=== PATIENT | female | born 1930 | race Caucasian/White ===

== ENCOUNTER 2017-02-07 21:22 | Inpatient (IN) | payer OTHER ==
--- NOTE | 2017-02-07 21:46 | CPEKG ---
Heart Rate: 75 RR Interval: 800 P-R Interval: 216 QRSD Interval: 86 QT Interval: 436 QTC Interval: 487 P Round Top: 41 QRS Round Top: -15 T Wave Round Top: 29 EKG Severity - BORDERLINE ECG - EKG Impression: SINUS RHYTHM EKG Impression: PROBABLE LEFT ATRIAL ABNORMALITY EKG Impression: BORDERLINE LEFT AXIS DEVIATION EKG Impression: BORDERLINE PROLONGED QT INTERVAL Electronically Signed By: Kamille Urbina 09-Feb-2017 06:47:22
[2017-02-07 22:02] LABS: % IMMATURE GRANULYOCYTES 0.5 % (0.0-1.1); ABSOLUTE IMMATURE GRANULOCYTES 0.07 10^3/uL (0.00-0.10); ADD DIFF? NO; ADD MORPH? NO; ADD SCAN? NO; ATYPICAL LYMPHOCYTE FLAG 0 (0-99); FRAGMENT RBC FLAG 10 (0-99); HEMATOCRIT 40.1 % (38.0-47.0); HEMOGLOBIN 14.1 g/dL (12.6-16.3); LEFT SHIFT FLG 0 (0-99); LIPEMIA HEMOLYSIS FLAG 90 (0-99); MEAN CELL HEMOGLOBIN 30.8 pg (27.9-34.1); MEAN CELL HEMOGLOBIN CONCENTR. 35.2 g/dL (32.4-36.7); MEAN CELL VOLUME 87.6 fL (81.5-99.8); MEAN PLATELET VOLUME 9.7 fL (8.7-11.7); PLATELET CLUMPS FLAG 10 (0-99); PLATELET COUNT 317 10^3/uL (150-400); RED BLOOD CELL COUNT 4.58 10^6/uL (4.18-5.33); RED CELL DISTRIBUTION WIDTH 12.7 % (11.5-15.2)
[2017-02-07] MEDS ORDERED: NS 500 ML IV ONE (22:03)
--- NOTE | 2017-02-07 22:07 | EDPHY ---
HPI/HX/ROS/PE/MDM Narrative: CHIEF COMPLAINT: Nausea and vomiting HPI: The patient is an 86-year-old female with no significant past medical history. On Monday she was diagnosed with UTI based on cloudy urine and started on Bactrim which she has been taking. This evening, she developed relatively rapid onset of nausea and vomiting. She denies abdominal pain. She denies chest pain or shortness of breath. She denies fever or dysuria. REVIEW OF SYSTEMS: Aside from elements discussed in the HPI, a comprehensive 10-point review of systems was reviewed and is negative. PMH: No history of bowel surgery. No history of cardiac disease. SOCIAL HISTORY: Retired speech therapist. Denies alcohol or drug abuse. PHYSICAL EXAM: General:Patient is alert, in no acute distress. ENT:Eyes are normal to inspection. ENT inspection normal. Neck: Normal inspection. Full range of motion. Respiratory:No respiratory distress. Breath sounds normal bilaterally. Cardiovascular: Regular rate and rhythm. Strong peripheral pulses. Normal cap refill. Abdomen:The abdomen is nontender to palpation. There are no peritoneal signs. There are normal bowel sounds. Back: Normal to inspection. No tenderness to palpation. Skin: Normal color. No rash. Warm and dry. Extremities: Normal appearance. Full range of motion. Neuro: Oriented x3. Normal motor function. Normal sensory function. (Ayaan Schmidt) ED Course: 12:30 a.m.- I received sign-out on this patient at approximately 11:[address] Schmidt. Her vital signs have remained stable. She has not had any ongoing vomiting here. Remainder of labs reveal a leukocytosis with signs of urinary tract infection with positive leukocyte esterase and white blood cells. I reviewed the patient's urine culture from several days ago which did reveal Corynebacterium, which could very well be contaminant. She has been compliant with Bactrim for 3 days now. Given her hyponatremia, vomiting, signs of urinary tract infection on today's UA, I have recommended admission for her and she agrees. I have ordered a dose of ceftriaxone. She does have cephalexin listed as an allergy, however she says this is to latex gloves and she denies any true cephalosporin allergy. I have discussed the case with the hospitalist Dr. Guillen and we will admit the patient (Kamille Urbina) 10:20 - I informed patient of her low sodium on lab tests and recommended admission. The patient states however that she does not want to be admitted because Medicare will not pay for an observation admit. (Ayaan Schmidt) - Data Points Imaging Results: Imaging Impressions Abdomen X-Ray 02/07/17 22:02 Impression: 1. Nonspecific bowel gas pattern. 2. Smoothly contoured density in the right lower quadrant, likely representing the inferior liver edge. A similar density is seen on program director cable television radiograph from CT dated 04/03/2010. Laboratory Results: Laboratory Results 02/07/17 21:10 02/07/17 21:10 02/07/17 02/07/17 02/07/17 23:17 21:10 21:10 WBC 12.91 10^3/uL H 10^3/uL (3.80-9.50) RBC 4.58 10^6/uL 10^6/uL (4.18-5.33) Hgb 14.1 g/dL g/dL (12.6-16.3) Hct 40.1 % % (38.0-47.0) MCV 87.6 fL fL (81.5-99.8) MCH 30.8 pg pg (27.9-34.1) MCHC 35.2 g/dL g/dL (32.4-36.7) RDW 12.7 % % (11.5-15.2) Plt Count 317 10^3/uL 10^3/uL (150-400) MPV 9.7 fL fL (8.7-11.7) Neut % (Auto) 78.2 % H % (39.3-74.2) Lymph % (Auto) 15.3 % % (15.0-45.0) [place] % (Auto) 5.3 % % (4.5-13.0) Eos % (Auto) 0.2 % L % (0.6-7.6) Baso % (Auto) 0.5 % % (0.3-1.7) Nucleat RBC Rel Count 0.0 % % (0.0-0.2) Absolute Neuts (auto) 10.09 10^3/uL H 10^3/uL (1.70-6.50) Absolute Lymphs (auto) 1.98 10^3/uL 10^3/uL (1.00-3.00) Absolute Monos (auto) 0.68 10^3/uL 10^3/uL (0.30-0.80) Absolute Eos (auto) 0.02 10^3/uL L 10^3/uL (0.03-0.40) Absolute Basos (auto) 0.07 10^3/uL 10^3/uL (0.02-0.10) Absolute Nucleated RBC 0.00 10^3/uL 10^3/uL (0-0.01) Immature Gran % 0.5 % % (0.0-1.1) Immature Gran # 0.07 10^3/uL 10^3/uL (0.00-0.10) Sodium 124 mEq/L L mEq/L (134-144) Potassium 4.0 mEq/L mEq/L (3.5-5.2) Chloride 92 mEq/L L mEq/L (97-110) Carbon Dioxide 18 mEq/l L mEq/l (22-31) Anion Gap 14 mEq/L mEq/L (8-16) BUN 11 mg/dL mg/dL (7-23) Creatinine 0.7 mg/dL mg/dL (0.6-1.0) Estimated GFR > 60 Glucose 132 mg/dL H mg/dL (70-100) Calcium 9.6 mg/dL mg/dL (8.5-10.4) Total Bilirubin 0.8 mg/dL mg/dL (0.1-1.4) AST 27 IU/L IU/L (14-46) ALT 32 IU/L IU/L (9-52) Alkaline Phosphatase 105 IU/L IU/L (38-126) Troponin I < 0.012 ng/mL ng/mL (0.000-0.034) Total Protein 7.1 g/dL g/dL (6.3-8.2) Albumin 4.3 g/dL g/dL (3.5-5.0) Lipase 112 IU/L IU/L (23-300) Urine Color YELLOW Urine Appearance MODERATELY TURBID Urine pH 6.0 (5.0-7.5) Ur Specific [place] 1.009 (1.002-1.030) Urine Protein NEGATIVE (NEGATIVE) Urine Ketones TRACE H (NEGATIVE) Urine Blood NEGATIVE (NEGATIVE) Urine Nitrate NEGATIVE (NEGATIVE) Urine Bilirubin NEGATIVE (NEGATIVE) Urine Urobilinogen NEGATIVE EU EU (0.2-1.0) Ur Leukocyte Esterase 3+ H (NEGATIVE) Urine RBC 25-50 /hpf H /hpf (0-3) Urine WBC 50-182 /hpf H /hpf (0-3) Ur Epithelial Cells Not Reported Urine Bacteria 1+ /hpf H /hpf (NONE SEEN) Urine Glucose NEGATIVE (NEGATIVE) Medications Given: Discontinued Medications Sodium Chloride (Ns) 500 mls @ 0 mls/hr IV EDNOW ONE; Wide Open PRN Reason: Protocol Stop: 02/07/17 22:04 Last Admin: 02/07/17 22:17 Dose: 500 mls General Time Seen by Provider: 02/07/17 21:42 Initial Vital Signs: Initial Vital Signs Temperature (C) 36.8 C 02/07/17 21:22 Heart Rate 76 02/07/17 21:22 Respiratory Rate 18 02/07/17 21:22 Blood Pressure 139/82 H 02/07/17 21:22 O2 Sat (%) 96 02/07/17 21:22 O2 Delivery Mode Room Air O2 (L/minute) 2 Allergies/Adverse Reactions: cephalexin monohydrate [From [employer]] Allergy (Verified 02/24/10 00:00) latex Allergy (Verified 02/08/17 10:11) Home Medications: Medication Instructions Recorded Escitalopram Oxalate [Lexapro] 10 mg PO DAILY 02/07/17 Herbals/Supplements -Info Only 1 ea PO DAILY 02/07/17 Sulfamethox/Tmp 800/160 mg 1 tab PO BID 02/07/17 [Bactrim Ds] amLODIPine BESYLATE [Norvasc 2.5 2.5 mg PO DAILY 02/07/17 mg (*)] Ascorbic Acid [Vitamin C 500 mg 500 mg PO DAILY 02/08/17 (*)] Cholecalciferol Vit D3 [Vitamin D3 1,000 units PO DAILY 02/08/17 (*)] Herbals/Supplements -Info Only 1 ea PO DAILY 02/08/17 Multivitamins [Multivitamin (*)] 1 each PO DAILY 02/08/17 Valet Manager Thyroid 60mg 1 each PO MWF 02/08/17 Valet Manager Thyroid 90mg 90 mg PO SUTUTHSA 02/08/17 Departure - Departure Disposition: [facility] Acute Clinical Impression: Hyponatremia Vomiting Qualifiers: Vomiting type: unspecified Vomiting Intractability: non-intractable Nausea presence: with nausea Qualified Code(s): R11.2 - Nausea with vomiting, unspecified UTI (urinary tract infection) Qualifiers: Urinary tract infection type: site unspecified Hematuria presence: without hematuria Qualified Code(s): N39.0 - Urinary tract infection, site not specified
[2017-02-07 22:13] LABS: ALANINE AMINOTRANSFERASE 32 IU/L (9-52); ALBUMIN 4.3 g/dL (3.5-5.0); ALKALINE PHOSPHATASE 105 IU/L (38-126); ANION GAP 14 mEq/L (8-16); ASPARTATE AMINOTRANSFERASE 27 IU/L (14-46); BILIRUBIN,TOTAL 0.8 mg/dL (0.1-1.4); CALCIUM 9.6 mg/dL (8.5-10.4); CARBON DIOXIDE 18 mEq/l (22-31); CHLORIDE 92 mEq/L (97-110); CREATININE 0.7 mg/dL (0.6-1.0); GLOMERULAR FILTRATION RATE > 60; GLUCOSE 132 mg/dL (70-100); SODIUM 124 mEq/L (134-144); TOTAL PROTEIN 7.1 g/dL (6.3-8.2)
[2017-02-07 22:31] LABS: TROPONIN I < 0.012 ng/mL (0.000-0.034)
[2017-02-07 23:30] LABS: COLOR YELLOW; LEUKOCYTE ESTERASE,URINE 3+ (NEGATIVE); NITRITE,URINE NEGATIVE (NEGATIVE)
[2017-02-07 23:35] LABS: BACTERIA 1+ /hpf (NONE SEEN); RBC,URINE 25-50 /hpf (0-3); WBC,URINE 50-182 /hpf (0-3)
[2017-02-08] MEDS ORDERED: ONDANSETRON DISINTEGRATING 4 MG TAB PO PRN (00:39)
[2017-02-08] MEDS ORDERED: NS 1,000 ML IV ONE (00:39)
[2017-02-08] MEDS ORDERED: ACETAMINOPHEN 325 MG TAB PO PRN (00:39)
[2017-02-08] MEDS ORDERED: ONDANSETRON 4 MG/2 ML VIAL IVP PRN (00:39)
--- NOTE | 2017-02-08 02:27 | GHP ---
[f rep st] HISTORY AND PHYSICAL DATE OF ADMISSION: 02/08/2017 CHIEF COMPLAINT: Nausea and vomiting. HISTORY OF PRESENT ILLNESS: This is an 86-year-old female with limited past medical history, who pre sented to her outpatient provider with dysuria approximately 72 hours ago, was started on oral Bactri m. Patient had continued symptoms on the oral Bactrim and then had progression today to lethargy, we akness, nausea and vomiting. After being unable to hold down adequate p.o., patient presented to the emergency department for evaluation. In the ED, endorses some subjective fevers. Denies chest pain , shortness of breath. Denies palpitations. Endorses some abdominal discomfort. Severe nausea and vomiting, which has been relieved with IV antiemetics. Endorses dysuria as well as hematuria. Denie s any myalgias, arthralgias or rashes. The patient typically is able to complete all her ADLs withou t limitation and takes regular food and drink without complication. PAST MEDICAL HISTORY: 1. Hypertension. 2. Hypothyroidism. 3. Chronic dry eyes. 4. Hearing loss. SOCIAL HISTORY: Lives independently in a facility and has lived with this facility support for appro ximately 23 years. Denies tobacco, alcohol or illicit drugs. FAMILY HISTORY: Positive for CVAs in her father. ADVANCED DIRECTIVES: The patient is do not resuscitate. Her daughter would be her medical decision maker. REVIEW OF SYSTEMS: The 10-point review of systems is negative with the exception of that reported in the HPI. PHYSICAL EXAMINATION: VITAL SIGNS: Blood pressure 132/82, heart rate 76, respiratory rate 18, 96% o n room air, 36.8. GENERAL: This is a very healthy-appearing elderly female, sitting in bed. HEENT: Notable for dry mucous membranes. Eye exam is negative for any icterus. CARDIAC: Patient is regu lar rate and rhythm. A quiet systolic murmur is appreciated. PULMONARY: Good respiratory effort. Clear to auscultation bilaterally. GASTROINTESTINAL: Positive bowel sounds. ABDOMEN: Soft, mildly tender to suprapubic pressure no rebound or guarding. MUSCULOSKELETAL: Negative for any lower extr emity edema. SKIN: Negative for any rashes. NEUROLOGIC: She is alert and oriented x3. PSYCHIATRI C: She is pleasant and cooperative on interview and examination. LABORATORY DATA: White count is 12.9, hematocrit 40.1, platelets of 317. Creatinine 0.7, sodium 124 . Urinalysis shows 50-182 white cells, with trace ketones, 3+ leukocyte esterase, and red cells. X-ray of the abdomen, which I personally reviewed and interpreted, shows no findings consistent with small bowel obstruction. ASSESSMENT AND PLAN: This is an 86-year-old female, presenting with nausea and vomiting. 1. Acute pyelonephritis. Patient has systemic symptoms, elevated white count and abnormal urinalysi s. The patient has been started on ceftriaxone in the emergency department. Urine culture has been sent. Will continue with empiric ceftriaxone until culture results available. 2. Hyponatremia. Suspect secondary to hypovolemia. Will resuscitate with normal saline and recheck in the morning. 3. Hypertension. Patient can resume her home medications in the morning after reconciliation. 4. Hypothyroidism. Will continue her thyroid replacement therapy in the morning after reconciliatio n. 5. Diet. Regular. 6. Prophylaxis. Lovenox. DISPOSITION: I expect in less than 2 midnights, as the patient is quite well baseline without signif icant vital sign abnormalities. I believe she will likely turn around in the next 24 hours with impr jenni white count and sodium levels. Safe for disposition home. I have discussed the case with the e mergency room physician. Patient will be triaged to the medical-surgical floor for care. /[id number]/MODL
[2017-02-08 05:25] LABS: % IMMATURE GRANULYOCYTES 0.5 % (0.0-1.1); ABSOLUTE IMMATURE GRANULOCYTES 0.05 10^3/uL (0.00-0.10); ADD DIFF? NO; ADD MORPH? NO; ADD SCAN? NO; ATYPICAL LYMPHOCYTE FLAG 10 (0-99); FRAGMENT RBC FLAG 10 (0-99); HEMATOCRIT 38.5 % (38.0-47.0); HEMOGLOBIN 13.2 g/dL (12.6-16.3); LEFT SHIFT FLG 0 (0-99); LIPEMIA HEMOLYSIS FLAG 90 (0-99); MEAN CELL HEMOGLOBIN 30.6 pg (27.9-34.1); MEAN CELL HEMOGLOBIN CONCENTR. 34.3 g/dL (32.4-36.7); MEAN CELL VOLUME 89.3 fL (81.5-99.8); MEAN PLATELET VOLUME 9.3 fL (8.7-11.7); PLATELET CLUMPS FLAG 10 (0-99); PLATELET COUNT 281 10^3/uL (150-400); RED BLOOD CELL COUNT 4.31 10^6/uL (4.18-5.33); RED CELL DISTRIBUTION WIDTH 12.7 % (11.5-15.2)
[2017-02-08 05:53] LABS: ANION GAP 8 mEq/L (8-16); CALCIUM 9.2 mg/dL (8.5-10.4); CARBON DIOXIDE 20 mEq/l (22-31); CHLORIDE 106 mEq/L (97-110); CREATININE 0.6 mg/dL (0.6-1.0); GLOMERULAR FILTRATION RATE > 60; GLUCOSE 99 mg/dL (70-100); POTASSIUM 4.1 mEq/L (3.5-5.2); SODIUM 134 mEq/L (134-144)
[2017-02-08] MEDS: ENOXAPARIN 40 MG/0.4 ML SYR SC SCH (08:42)
[2017-02-08] MEDS: ESCITALOPRAM OXALATE 10 MG TAB PO SCH (13:02)
[2017-02-08] MEDS: CHOLECALCIFEROL VIT D3 1,000 UNITS TAB PO SCH (13:02)
--- NOTE | 2017-02-08 16:26 | ASMTCMCOM ---
CM Note CM Note Notes: Pt admitted obs status for UTI, vomiting, hyponatremia. She lives at [facility]. Per pt's RN, pt concerned about her obs status and her hospital stay not being paid for. CM spoke with pt re her concerns and provided a Medicare info sheet explaining obs vs inpt stay. Pt also has secondary insurance. Pt appreciative of info. CM also to contact pt's daughter Katie [phone] with this info. PT/OT have cleared pt. Anticipate d/c home with no CM needs. Date Signed: 02/08/2017 04:25 PM Electronically Signed By:MIKE Bustamante
[2017-02-08] MEDS: NP THYROID 60 MG PO SCH (16:38)
[2017-02-08] MEDS: NP THYROID 90 MG PO SCH (16:38)
--- NOTE | 2017-02-08 17:41 | HOSPPROG ---
Hospitalist Progress Note Assessment/Plan: DIAGNOSES: -acute complicated urinary tract infection pending cultures -weakness and gait instability with unsafe ambulation -hypovolemic hyponatremia, notably improved today, likely caused by poor intake from her acute illness as above PLANS: Continue current empiric antibiotics Continue hydration Physical occupational therapy DVT prophylaxis Due to gait instability she will be unsafe home so will need to stay here tonight again and will change to inpatient for that reason SUBJECTIVE: Still feels quite widely on her feet Nausea and vomiting have stopped and she has actually been able to start OBJECTIVE Vitals reviewed: Afebrile otherwise stable Exam: alert oriented skin warm dry color ok resps not labored lungs clear BSs heart regular abd soft nondistended nontender, bowel sounds present limbs warm, no edema iv site ok Laboratory data: Sodium markedly improved today Urine culture pending Objective: Vital Signs Temp Pulse Resp BP Pulse Ox 37.1 C 88 18 118/67 94 02/08/17 16:23 02/08/17 16:23 02/08/17 16:23 02/08/17 16:23 02/08/17 16:23 Laboratory Results 02/08/17 04:45 02/08/17 04:45 02/07/17 02/08/17 02/09/17 06:59 06:59 06:59 Intake Total 1488 1500 Balance 1488 1500 ICD10 Worksheet Patient Problems: Problems Problem Status Onset Hyponatremia Acute UTI (urinary tract infection) Acute Vomiting Acute
[2017-02-09] MEDS: NP THYROID 90 MG PO SCH (09:18)
[2017-02-09] MEDS: ESCITALOPRAM OXALATE 10 MG TAB PO SCH (09:19)
[2017-02-09] MEDS: MULTIVITAMINS 1 EACH TAB PO SCH (09:19)
[2017-02-09] MEDS: ASCORBIC ACID 500 MG TAB PO SCH (09:20)
[2017-02-09] MEDS: ENOXAPARIN 40 MG/0.4 ML SYR SC SCH (09:20)
[2017-02-09] MEDS: CHOLECALCIFEROL VIT D3 1,000 UNITS TAB PO SCH (09:20)
--- NOTE | 2017-02-09 09:22 | HOSPPROG ---
Hospitalist Progress Note Assessment/Plan: DIAGNOSES: -acute complicated urinary tract infection with corynebacterium growing from prior clinic culture -weakness and gait instability with unsafe ambulation, seems better at moment -hypovolemic hyponatremia, notably improved, likely caused by poor intake from her acute illness as above -new onset today acute diarrheal, diff dx includes abx side effect or C diff infection PLANS: Continue current antibiotics, but possible change due to stool issues Continue hydration Physical occupational therapy DVT prophylaxis stool sent to lab for C diff check will need to assess that and her overall safety w mobility to determine if going home makes sense SUBJECTIVE: feels no fever sxs and stronger on feet however 5 diarrheal stools in past 2 hours, no abd pain, has not tried breakfast yet OBJECTIVE Vitals reviewed: Afebrile otherwise stable Exam: alert oriented skin warm dry color ok resps not labored lungs clear BSs heart regular abd soft nondistended nontender, bowel sounds present limbs warm, no edema iv site ok Laboratory data: Urine culture from clinic w Corynebacterium Objective: Vital Signs Temp Pulse Resp BP Pulse Ox 36.6 C 66 14 145/83 H 94 02/09/17 08:12 02/09/17 08:12 02/09/17 08:12 02/09/17 08:12 02/09/17 08:12 ICD10 Worksheet Patient Problems: Problems Problem Status Onset Hyponatremia Acute UTI (urinary tract infection) Acute Vomiting Acute
[2017-02-09] MEDS: DIPHENOXYLATE/ATROPINE LOMOTIL 1 TAB PO PRN (14:51)
[2017-02-10] MEDS: DIPHENOXYLATE/ATROPINE LOMOTIL 1 TAB PO PRN ×2 (01:35→08:48)
[2017-02-10] MEDS: NP THYROID 60 MG PO SCH (08:42)
--- NOTE | 2017-02-10 09:29 | HOSPPROG ---
Hospitalist Progress Note Assessment/Plan: DIAGNOSES: -acute complicated urinary tract infection with corynebacterium growing from prior clinic culture -weakness and gait instability with unsafe ambulation, worse now likely due to fluid and electrolyte loss -diarrhea, c diff neg, but likely and abx side effect -hypovolemic hyponatremia, initially improved but suspect now worse with her diarrhea PLANS: Due to Corynebacterium and to the diarrhea that has developed will change to doxycycline Continue hydration Physical occupational therapy DVT prophylaxis will need to improve her overall safety w mobility before going home makes sense I have reviewed all of above with patient and with her daughter SUBJECTIVE: feels no fever sxs still having a lot of diarrhea, and is feeling weaker with ambulation OBJECTIVE Vitals reviewed: Afebrile otherwise stable Exam: alert oriented skin warm dry color ok resps not labored lungs clear BSs heart regular abd soft nondistended nontender, bowel sounds present limbs warm, no edema iv site ok Laboratory data: Urine culture from clinic w Corynebacterium Objective: Vital Signs Temp Pulse Resp BP Pulse Ox 36.9 C 70 18 120/79 94 02/10/17 08:29 02/10/17 08:29 02/10/17 08:29 02/10/17 08:29 02/10/17 08:29 02/09/17 02/10/17 02/11/17 06:59 06:59 06:59 Intake Total 1999 Balance 2000 ICD10 Worksheet Patient Problems: Problems Problem Status Onset Hyponatremia Acute UTI (urinary tract infection) Acute Vomiting Acute
[2017-02-10] MEDS: ESCITALOPRAM OXALATE 10 MG TAB PO SCH (09:45)
[2017-02-10] MEDS: ASCORBIC ACID 500 MG TAB PO SCH (09:45)
[2017-02-10] MEDS: MULTIVITAMINS 1 EACH TAB PO SCH (09:45)
[2017-02-10] MEDS: NS 1,000 ML IV SCH ×3 (09:45→21:15)
[2017-02-10] MEDS: CHOLECALCIFEROL VIT D3 1,000 UNITS TAB PO SCH (09:45)
[2017-02-10] MEDS: ENOXAPARIN 40 MG/0.4 ML SYR SC SCH (09:46)
[2017-02-10] MEDS: DOXYCYCLINE HYCLATE 100 MG CAP/TAB PO SCH ×2 (09:54→21:15)
[2017-02-10 10:21] LABS: ANION GAP 10 mEq/L (8-16); CALCIUM 9.6 mg/dL (8.5-10.4); CARBON DIOXIDE 23 mEq/l (22-31); CHLORIDE 101 mEq/L (97-110); CREATININE 0.6 mg/dL (0.6-1.0); GLOMERULAR FILTRATION RATE > 60; GLUCOSE 87 mg/dL (70-100); POTASSIUM 4.1 mEq/L (3.5-5.2); SODIUM 134 mEq/L (134-144)
--- NOTE | 2017-02-10 14:14 | ASMTCMCOM ---
CM Note CM Note Notes: Pt has weakness and gait instability. MD would like PT/OT to evaluate pt b/c she is currently not safe to return home. C/M will follow for DC needs. Date Signed: 02/10/2017 02:13 PM Electronically Signed By:Erendira Márquez LCSW
[2017-02-11 05:06] LABS: ANION GAP 8 mEq/L (8-16); CARBON DIOXIDE 23 mEq/l (22-31); CHLORIDE 108 mEq/L (97-110); CREATININE 0.6 mg/dL (0.6-1.0); GLOMERULAR FILTRATION RATE > 60; GLUCOSE 91 mg/dL (70-100); POTASSIUM 4.3 mEq/L (3.5-5.2); SODIUM 139 mEq/L (134-144)
[2017-02-11] MEDS: NP THYROID 90 MG PO SCH (08:36)
--- NOTE | 2017-02-11 09:05 | HOSPPROG ---
Hospitalist Progress Note Assessment/Plan: DIAGNOSES: -acute complicated urinary tract infection with corynebacterium growing from prior clinic culture (>100,000), however now E. faecalis growing in our culture here hard to determine which if either organism truly pathogenic -weakness and gait instability with unsafe ambulation, worse now likely due to fluid and electrolyte loss -diarrhea, c diff neg, but likely and abx side effect: persists despite use of antidiarrheal med -hypovolemic hyponatremia, initially improved and holding stable PLANS: Due to Enterococcus and Corynebacterium in urine Cx's, will change abx to augmentin at present check stool pathogen panel to be certain no other infectious organism, but suspect this is instead an abx side effect Continue hydration Physical occupational therapy DVT prophylaxis will need to improve her overall safety w mobility before going home makes sense SUBJECTIVE: feels no fever sxs still having a lot of diarrhea, and still wobbly on feet does not feel comfortable going home w these sxs OBJECTIVE Vitals reviewed: Afebrile otherwise stable Exam: alert oriented skin warm dry color ok resps not labored lungs clear BSs heart regular abd soft nondistended nontender, bowel sounds present limbs warm, no edema iv site ok Laboratory data: Urine culture from clinic w Corynebacterium, but now cx done here with enterococcus which is resistant to Tetracycline Objective: Vital Signs Temp Pulse Resp BP Pulse Ox 36.3 C 71 16 158/88 H 94 02/11/17 07:21 02/11/17 07:21 02/11/17 07:21 02/11/17 07:21 02/11/17 07:21 Laboratory Results 02/11/17 04:18 02/10/17 02/11/17 02/12/17 06:59 06:59 06:59 Intake Total 1999 4464 Balance 1999 4437 ICD10 Worksheet Patient Problems: Problems Problem Status Onset Hyponatremia Acute UTI (urinary tract infection) Acute Vomiting Acute
[2017-02-11] MEDS: AMOXICILLIN/CLAVULANATE POT 875/125 MG TAB PO SCH ×2 (09:52→21:55)
[2017-02-11] MEDS: CHOLECALCIFEROL VIT D3 1,000 UNITS TAB PO SCH (09:53)
[2017-02-11] MEDS: MULTIVITAMINS 1 EACH TAB PO SCH (09:53)
[2017-02-11] MEDS: ESCITALOPRAM OXALATE 10 MG TAB PO SCH (09:53)
[2017-02-11] MEDS: DOXYCYCLINE HYCLATE 100 MG CAP/TAB PO SCH ×2 (09:54→21:55)
[2017-02-11] MEDS: ASCORBIC ACID 500 MG TAB PO SCH (09:54)
[2017-02-11] MEDS: ENOXAPARIN 40 MG/0.4 ML SYR SC SCH (09:55)
[2017-02-11] MEDS: NS 1,000 ML IV SCH (20:03)
[2017-02-12] MEDS: NP THYROID 90 MG PO SCH (07:47)
[2017-02-12] MEDS: NS 1,000 ML IV SCH (09:25)
[2017-02-12] MEDS: AMOXICILLIN/CLAVULANATE POT 875/125 MG TAB PO SCH ×2 (09:26→20:46)
[2017-02-12] MEDS: ENOXAPARIN 40 MG/0.4 ML SYR SC SCH (09:26)
[2017-02-12] MEDS: ESCITALOPRAM OXALATE 10 MG TAB PO SCH (09:26)
[2017-02-12] MEDS: MULTIVITAMINS 1 EACH TAB PO SCH (09:26)
[2017-02-12] MEDS: ASCORBIC ACID 500 MG TAB PO SCH (09:26)
[2017-02-12] MEDS: CHOLECALCIFEROL VIT D3 1,000 UNITS TAB PO SCH (09:26)
[2017-02-12] MEDS: DOXYCYCLINE HYCLATE 100 MG CAP/TAB PO SCH (09:26)
--- NOTE | 2017-02-12 15:47 | HOSPPROG ---
Hospitalist Progress Note Assessment/Plan: 86-year-old who presented with an acute urinary tract infection being treated with Bactrim. Post admission she was changed to Levaquin and now has grown cornea bacterium which is being treated with doxycycline. Stool is now grown enterococcus faecalis. Patient is new to me today. -urinary tract infection complicated by culture showing positive cornea bacterium and Enterococcus faecalis. -weakness secondary to acute infection and electrolyte disorders -culture results: Stools growing E coli, a toxigenic E coli. Urine is growing enterococcus faecalis sensitive to ampicillin and resistant to doxycycline. White count continues to be elevated slightly although she is afebrile. Stool was also negative for C difficile. -diarrhea: C diff negative this may be likely secondary to the use of antibiotics. Plan: PT OT and an ID consultation if the matter does not resolve. Stop doxycycline and start Augmentin for the Enterococcus. The toxigenic E coli does not need to be treated unless the patient appears toxic or acutely ill. If white count does not fall by tomorrow then ID will be consulted. Subjective: Reports lessening of the diarrhea no nausea vomiting denies chest pain or shortness of breath Objective: Vital Signs Temp Pulse Resp BP Pulse Ox 36.6 C 59 L 18 146/95 H 93 02/12/17 07:49 02/12/17 07:49 02/12/17 07:49 02/12/17 09:27 02/12/17 07:49 Microbiology 02/11/17 10:47 Gastrointestinal Tract Panel (PCR) - Final Stool E.coli Enterotoxigenic ([facility]) Laboratory Results 02/11/17 04:18 02/11/17 02/12/17 02/13/17 05:59 05:59 05:59 Intake Total 4437 3624 500 Output Total 8 Balance 4437 3616 500 - Time Spent With Patient Time Spent with Patient: greater than 35 minutes Time Spent with Patient: Greater than 35 minutes spent on this patients care, greater than 50% of time spent counseling, educating, and coordinating care regarding the above mentioned plan. - Pending Discharge Pending Discharge Within 24 Hours: No Pending Discharge Within 48 Hours: Yes Pending Discharge Date: 02/14/17 Pending Discharge Time: 11:00 - Physical Exam Constitutional: no apparent distress Eyes: PERRL, anicteric sclera Ears, Nose, Mouth, Throat: moist mucous membranes, hearing normal Cardiovascular: regular rate and rhythym, no murmur, rub, or gallop Respiratory: no respiratory distress, no rales or rhonchi, clear to auscultation Gastrointestinal: normoactive bowel sounds, soft, non-tender abdomen (Very slight tenderness without voluntary or involuntary guarding or rebound. No masses could be palpated), distension Genitourinary: no bladder fullness Skin: warm Musculoskeletal: generalized weakness Neurologic: AAOx3, CN II-XII Intact ICD10 Worksheet Patient Problems: Problems Problem Status Onset Hyponatremia Acute UTI (urinary tract infection) Acute Vomiting Acute
[2017-02-13 05:43] LABS: % IMMATURE GRANULYOCYTES 0.4 % (0.0-1.1); ABSOLUTE IMMATURE GRANULOCYTES 0.03 10^3/uL (0.00-0.10); ADD DIFF? NO; ADD MORPH? NO; ADD SCAN? NO; ATYPICAL LYMPHOCYTE FLAG 30 (0-99); FRAGMENT RBC FLAG 0 (0-99); HEMATOCRIT 38.8 % (38.0-47.0); HEMOGLOBIN 13.2 g/dL (12.6-16.3); LEFT SHIFT FLG 0 (0-99); LIPEMIA HEMOLYSIS FLAG 90 (0-99); MEAN CELL HEMOGLOBIN 30.6 pg (27.9-34.1); MEAN PLATELET VOLUME 9.1 fL (8.7-11.7); PLATELET CLUMPS FLAG 0 (0-99); PLATELET COUNT 263 10^3/uL (150-400); RED BLOOD CELL COUNT 4.31 10^6/uL (4.18-5.33)
[2017-02-13 06:24] LABS: ANION GAP 7 mEq/L (8-16); CALCIUM 9.4 mg/dL (8.5-10.4); CARBON DIOXIDE 24 mEq/l (22-31); CHLORIDE 104 mEq/L (97-110); CREATININE 0.6 mg/dL (0.6-1.0); GLOMERULAR FILTRATION RATE > 60; GLUCOSE 88 mg/dL (70-100); SODIUM 135 mEq/L (134-144)
[2017-02-13 08:37] VITALS: RESP 16
[2017-02-13] MEDS: NP THYROID 60 MG PO SCH (08:54)
[2017-02-13] MEDS: ASCORBIC ACID 500 MG TAB PO SCH (08:55)
[2017-02-13] MEDS: MULTIVITAMINS 1 EACH TAB PO SCH (08:55)
[2017-02-13] MEDS: AMOXICILLIN/CLAVULANATE POT 875/125 MG TAB PO SCH ×2 (08:55→20:58)
[2017-02-13] MEDS: CHOLECALCIFEROL VIT D3 1,000 UNITS TAB PO SCH (08:55)
[2017-02-13] MEDS: ESCITALOPRAM OXALATE 10 MG TAB PO SCH (08:56)
[2017-02-13] MEDS: ENOXAPARIN 40 MG/0.4 ML SYR SC SCH (08:56)
--- NOTE | 2017-02-13 10:37 | HOSPPROG ---
Hospitalist Progress Note Assessment/Plan: 86-year-old who presented with an acute urinary tract infection being treated with Bactrim. Post admission she was changed to Levaquin and now has grown cornea bacterium which is being treated with doxycycline. Stool is now grown enterococcus faecalis. -urinary tract infection complicated by culture showing positive cornea bacterium and Enterococcus faecalis. -weakness secondary to acute infection and electrolyte disorders -culture results: Stools growing E coli, a toxigenic E coli. Urine is growing enterococcus faecalis sensitive to ampicillin and resistant to doxycycline. White count continues to be elevated slightly although she is afebrile. Stool was also negative for C difficile. -diarrhea: C diff negative this may be likely secondary to the use of antibiotics. Plan: PT OT and an ID consultation if the matter does not resolve. Stop doxycycline and start Augmentin for the Enterococcus. The toxigenic E coli does not need to be treated unless the patient appears toxic or acutely ill. If white count does not fall by tomorrow then ID will be consulted. Plan was discussed with Infectious Disease, Dr. Abdi Handy. Subjective: No complaints. Reports a problem of constipation reports she usually has a bowel movement every day or every other day but has not had a bowel movement last 3 days. Denies jose angel nausea or vomiting. Objective: Vital Signs Temp Pulse Resp BP Pulse Ox 36.7 C 68 16 142/89 H 94 02/13/17 08:30 02/13/17 08:30 02/13/17 08:30 02/13/17 08:30 02/13/17 08:30 Laboratory Results 02/13/17 05:24 02/13/17 05:24 02/12/17 02/13/17 02/14/17 05:59 05:59 05:59 Intake Total 3624 2750 Output Total 8 Balance 3616 2750 Selected Entries 02/12/17 02/12/17 02/12/17 09:27 16:00 20:00 Blood Pressure 146/95 H 149/86 H 151/98 H 02/13/17 02/13/17 05:59 08:30 Blood Pressure 139/83 H 142/89 H Laboratory Tests 02/07/17 02/08/17 02/13/17 21:10 04:45 05:24 WBC 12.91 H 10.54 H 7.03 - Time Spent With Patient Time Spent with Patient: greater than 35 minutes Time Spent with Patient: Greater than 35 minutes spent on this patients care, greater than 50% of time spent counseling, educating, and coordinating care regarding the above mentioned plan. - Pending Discharge Pending Discharge Within 24 Hours: No Pending Discharge Within 48 Hours: No - Physical Exam Constitutional: no apparent distress, chronically ill appearing Eyes: PERRL, anicteric sclera Ears, Nose, Mouth, Throat: moist mucous membranes, hearing normal Cardiovascular: regular rate and rhythym, no murmur, rub, or gallop Respiratory: no respiratory distress, no rales or rhonchi, clear to auscultation Gastrointestinal: other (To nephrostomy sites from the back car he draining well vaginal Lin catheters draining well. Rectal exam showed no significant stool no impaction for sure. There was just loose brown stool no masses or tenderness) Genitourinary: no bladder fullness Skin: warm, other (No sacral decubitus noted) Musculoskeletal: generalized weakness Neurologic: AAOx3, CN II-XII Intact Psychiatric: interacting appropriately ICD10 Worksheet Patient Problems: Problems Problem Status Onset Hyponatremia Acute Vomiting Acute UTI (urinary tract infection) Acute
[2017-02-14 05:01] LABS: % IMMATURE GRANULYOCYTES 0.3 % (0.0-1.1); ABSOLUTE IMMATURE GRANULOCYTES 0.02 10^3/uL (0.00-0.10); ADD DIFF? NO; ADD MORPH? NO; ADD SCAN? NO; ATYPICAL LYMPHOCYTE FLAG 20 (0-99); FRAGMENT RBC FLAG 0 (0-99); HEMATOCRIT 38.9 % (38.0-47.0); HEMOGLOBIN 13.1 g/dL (12.6-16.3); LEFT SHIFT FLG 0 (0-99); LIPEMIA HEMOLYSIS FLAG 80 (0-99); MEAN CELL HEMOGLOBIN 30.4 pg (27.9-34.1); MEAN CELL HEMOGLOBIN CONCENTR. 33.7 g/dL (32.4-36.7); MEAN CELL VOLUME 90.3 fL (81.5-99.8); MEAN PLATELET VOLUME 9.2 fL (8.7-11.7); PLATELET CLUMPS FLAG 0 (0-99); PLATELET COUNT 265 10^3/uL (150-400); RED BLOOD CELL COUNT 4.31 10^6/uL (4.18-5.33)
[2017-02-14 09:08] VITALS: BP 147/84; PULSE 67; TEMP 97.8; O2SAT 95
[2017-02-14] MEDS: NP THYROID 90 MG PO SCH (09:11)
--- NOTE | 2017-02-14 09:57 | HOSPPROG ---
Hospitalist Progress Note Assessment/Plan: 86-year-old who presented with an acute urinary tract infection being treated with Bactrim. Post admission she was changed to Levaquin and now has grown cornea bacterium which is being treated with doxycycline. urine is now grown enterococcus faecalis patient improving on augmenten -urinary tract infection complicated by culture showing positive cornea bacterium and Enterococcus faecalis. -weakness secondary to acute infection and electrolyte disorders -culture results: Stools growing E coli, a toxigenic E coli. Urine is growing enterococcus faecalis sensitive to ampicillin and resistant to doxycycline. White count continues to be elevated slightly although she is afebrile. Stool was also negative for C difficile. -diarrhea: C diff negative this may be likely secondary to the use of antibiotics. Plan: PT OT and an ID consultation if the matter does not resolve. Stop doxycycline and start Augmentin for the Enterococcus. The toxigenic E coli does not need to be treated unless the patient appears toxic or acutely ill. If white count does not fall by tomorrow then ID will be consulted. Plan was discussed with Infectious Disease, Dr. Abdi Handy. [facility] in [facility] pcp Marissa Cooper Subjective: feeling well Objective: Vital Signs Temp Pulse Resp BP Pulse Ox 36.6 C 67 16 147/84 H 95 02/14/17 09:00 02/14/17 09:00 02/14/17 09:00 02/14/17 09:00 02/14/17 09:00 Laboratory Results 02/14/17 04:22 02/13/17 05:24 02/13/17 02/14/17 02/15/17 05:59 05:59 05:59 Intake Total 2750 1000 Balance 2750 1000 - Time Spent With Patient Time Spent with Patient: greater than 35 minutes Time Spent with Patient: Greater than 35 minutes spent on this patients care, greater than 50% of time spent counseling, educating, and coordinating care regarding the above mentioned plan. - Pending Discharge Pending Discharge Within 24 Hours: Yes Pending Discharge Date: 02/15/17 Pending Discharge Time: 11:00 - Physical Exam Constitutional: no apparent distress Eyes: PERRL Ears, Nose, Mouth, Throat: moist mucous membranes, hearing normal Cardiovascular: regular rate and rhythym, no murmur, rub, or gallop Respiratory: no respiratory distress, no rales or rhonchi, reduced air movement Gastrointestinal: normoactive bowel sounds, soft, non-tender abdomen, no palpable masses Genitourinary: no bladder fullness Skin: warm Musculoskeletal: full muscle strength ICD10 Worksheet Patient Problems: Problems Problem Status Onset Hyponatremia Acute UTI (urinary tract infection) Acute Vomiting Acute
[2017-02-14] MEDS: ESCITALOPRAM OXALATE 10 MG TAB PO SCH (10:33)
[2017-02-14] MEDS: AMOXICILLIN/CLAVULANATE POT 875/125 MG TAB PO SCH (10:33)
[2017-02-14] MEDS: ASCORBIC ACID 500 MG TAB PO SCH (10:34)
[2017-02-14] MEDS: CHOLECALCIFEROL VIT D3 1,000 UNITS TAB PO SCH (10:34)
[2017-02-14] MEDS: MULTIVITAMINS 1 EACH TAB PO SCH (10:34)
[2017-02-14] MEDS: ENOXAPARIN 40 MG/0.4 ML SYR SC SCH (10:35)
--- NOTE | 2017-02-14 12:53 | GCON ---
[f rep st] CONSULTATION INFECTIOUS DISEASE CONSULTATION DATE OF CONSULTATION: 02/14/2017 REFERRING PHYSICIAN: Ace Sutherland Jr., MD REASON FOR CONSULTATION: Urinary tract infection. CHIEF COMPLAINT: Dysuria. HISTORY OF PRESENT ILLNESS: An 86-year-old, female with a past medical history significant for hypertension, hypothyroidism, who was admitted several days ago with persistent dysuria. Appare ntly, she went to her primary care doctor about 3 days prior to that with ongoing dysuria, and was pl aced on empiric Bactrim. She had a prior urine culture done on 02/03, which grew out Corynebacterium species. Despite being on Bactrim, she continued to have dysuria, had increasing weakness, and had developed nausea and vomiting. She was afebrile in the outpatient, as well as during the ER visit al [place] with her hospital course here. She did have a leukocytosis of 12.9 with a left shift at that get e, with urinalysis showing urine WBCs of 50-182, leukocyte esterase. Urine culture which grew out gr eater than 100,000 enterococcus faecalis. She was initially placed on ceftriaxone, given 1 dose at t he time of admission, then change to Levaquin from 02/08 through 02/10, then change to doxycycline fr om 02/10 to 02/12. She was then started on Augmentin on February 11 and has been on that since. He r white blood cell count has improved into the normal range, and she has resolution of her left shift . She has been afebrile throughout the hospitalization. She has no further nausea, vomiting. She n ever had flank pain during her presentation or presently. She is having some mild loose stools about 2-3 times a day. Her normal bowel habits are formed stools for about 2-3 times a day. She denies a ny belly cramping with this. She no longer has any dysuria. She does some itching in the labial are a at present, but she is about 88% to 90% better, per her words, than when she came in. Sherrie zavala is now consulted for further evaluation and opinion regarding the above. REVIEW OF SYSTEMS: She denies any fevers or shaking chills. HEAD: No headaches. EYES: No change in vision. ENT: No sore throat, difficulty swallowing, ear pain, ear drainage. CARDIOVASCULAR: De nies any chest pain. RESPIRATORY: Denies any shortness of breath, cough, or sputum production. GI: Nausea, vomiting, abdominal pain. She has some loose stools as stated above. BACK: No flank pain or back pain. : As stated above. MUSCULOSKELETAL: Denies any joint pain or muscle aches. SKIN : No rashes. Rest of above 10-point review of systems essentially negative. PAST MEDICAL HISTORY: Significant for hypothyroidism, hearing loss, hypertension, chronic dry eyes. ALLERGIES: Cephalexin and . She states she has been on amoxicillin in the past without tr ouble. SOCIAL HISTORY: She is a former smoker, but quit several years ago. She does not drink alcohol. Keyla luis lives independently. FAMILY HISTORY: Significant for CVAs. MEDICATION: As per JUL. PHYSICAL EXAMINATION: VITAL SIGNS: Temperature current 36.6, pulse is 67, blood pressure 147/84, re spiratory rate is 16, saturation is 94% on room air. GENERAL: The patient is sitting up in bed. No acute respiratory distress. Awake, alert, oriented x3. HEENT. Head is normocephalic, atraumatic. Eyes without injection or petechiae noted. Oropharynx is clear. CARDIOVASCULAR: S1, S2. Regular rate and rhythm. RESPIRATORY: Clear to auscultate bilaterally. No rhonchi or rales appreciated. A BDOMEN: Positive bowel sounds in all quadrants, soft, nontender, nondistended. No organomegaly appr eciated. : Perineum exam shows some mild erythema involving the labia. EXTREMITIES: No lower ex tremity edema. MUSCULOSKELETAL: No pain on palpation of joints. LABORATORY DATA: White blood cell count is 7.6, hemoglobin 13.1, platelets are 267, neutrophil count 55, sodium 135, potassium 4.0, chloride 74, bicarb is 24, BUN is 8, creatinine 0.9. LFTs on admissi on were within normal range. Urinalysis as stated above. C difficile was negative on February 09, 2014. Microbiology data are urine culture with greater than 100,000 enterococcus faecalis. Stool GI, PCR p vance shows E coli enterotoxigenic. ASSESSMENT: Complicated urinary tract infection. PLAN: The patient came in with persistent dysuria with several bouts of nausea and vomiting, along w ith leukocytosis. She did not have a fever and did not have flank pain. So, unlikely to have extend ed up to involve pyelonephritis. The patient is currently responding to Augmentin therapy. Her micr obiology profile was reviewed. Enterococcus faecalis is sensitive to ampicillin. Would recommend th at she goes to amoxicillin 500 mg q.12 hours to complete 5-6 more days of therapy to complete a 10 da y course total. Side effects of the antibiotics were discussed with the patient. She is to monitor for progressive diarrhea. Recommend that she follows up with her primary care doctor. Care taiwo cantor with the hospitalist team. I thank you very much for providing this opportunity to care for your patient in consultation. /[id number]/MODL
--- NOTE | 2017-02-14 13:13 | GDS ---
[f rep st] DISCHARGE SUMMARY KNOWN ACUTE DIAGNOSES: 1. Acute urinary tract infection. 2. Weakness secondary to acute illness. 3. Electrolyte disorders of hyponatremia secondary to hypovolemia. 4. Hypertension. CHRONIC DIAGNOSES: 1. Hypothyroidism, currently under treatment. 2. Diarrhea, Clostridium difficile negative, and resolved at the time of discharge. CONSULTATION: Infectious Disease. PROCEDURES: None. HISTORY: This is an 86-year-old female, who presented with acute weakness and a history of a recent treatment for urinary tract infection. She had been treated with Bactrim and then Levaquin, and note d from stool cultures and urine cultures to grow toxigenic E coli from the stool and enterococcus charlotte calis from the urine. She was, at that point, changed from doxycycline to Augmentin. Her white coun t fell nicely from 12,000 on admission to 7000. She remained afebrile and improved. She no longer h ad symptoms of dysuria or weakness, and her strength was improving nicely. The low sodium of 124 on presentation improved nicely with saline hydration to 135 at the time of discharge. C difficile was negative. DISCHARGE MEDICATIONS: Amoxicillin 500 mg twice daily x6 days. That is a new medication. She will continue her previous medications as follows: She takes some herbal supplementation, which she can c ontinue. She takes a Synthroid dose of 60 mg, which would be [place] Thyroid taken on Monday, ay and Monday. Multivitamin daily. Lexapro 10 mg daily, vitamin D3 1000 international units daily, ascorbic acid 500 mg daily, amlodipine. 2.5 mg daily. Stopped medications are Bactrim DS. PLAN: The patient is discharged to her independent living facility here in [place]. Her followup wi ll be with Annabella Hallman DO, her PCP, and I have recommended a followup in approximately 1-2 weeks to have her urine rechecked. Matters to be addressed at the first followup would be a recheck of the lady's urine to assess cleara nce after her 6 days of amoxicillin. LABORATORY OF NOTE AT TIME OF DISCHARGE: WBC 7000, hemoglobin 13, sodium 135, renal function normal. Clostridium difficile was negative. Stool culture grew Escherichia coli enterotoxigenic which woul d be self limited, and the urine culture grew enterococcus faecalis with a pansensitive organism. TIME: This discharge required 45 minutes, greater than 50% to veterans' counselor and coordinate her care. /[id number]/MODL
== END 2017-02-14 15:38 | disposition home or self-care (01) | DRG 690 ==
LOC: EDUNIT# → F1N 02-08 01:54 → OBSVTOIN 02-08 17:37 → UNDODISIN 02-14 14:40
PROVIDERS: ADMIT Hospitalist; ATTEND Hospitalist
DX: N39.0 Urinary tract infection, site not specified (principal); E87.1 Hypo-osmolality and hyponatremia; A04.1 Enterotoxigenic Escherichia coli infection; E86.1 Hypovolemia; I10 Essential (primary) hypertension; E03.9 Hypothyroidism, unspecified; B95.2 Enterococcus as the cause of diseases classified elsewhere
CPT/HCPCS: 97116-GP; 97161-GP; 97165-GO; G8978-GP-CH; G8978-GP-CI; G8979-GP-CH; G8979-GP-CI; G8980-GP-CH; G8987-GO-CI; G8988-GO-CI; G8989-GO-CI; J0696; J1650

== ENCOUNTER → 2017-10-16 | Outpatient (CLI) | payer OTHER | LOC: FLAB 10:45 → FIMAGING 10:45 → EDSTATUS 20:29 | PROVIDERS: ATTEND Internal Medicine Gastroenterology | DX: K59.1 Functional diarrhea (principal) ==